=== PATIENT | male | born 1940 | race Caucasian/White ===

== ENCOUNTER 2016-06-29 14:37 | Inpatient (IN) | payer OTHER, MEDICARE ==
[~2016-06-29 14:37] MED LIST: DIAZ5 PO
[2016-06-29 14:42] VITALS: BP 130/79; PULSE 78; RESP 18; TEMP 98.8; O2SAT 91
[2016-06-29] MEDS ORDERED: [UNRECOGNIZED DRUG - OTHER] (14:52)
[2016-06-29] MEDS ORDERED: DIAZ5TAB PO (14:52)
[2016-06-29 15:15] VITALS: O2SAT 93
[2016-06-29] MEDS ORDERED: SODIUM CHLORIDE 0.9% FLUSH 5 ML FLUSH IVF PRN (15:15)
--- NOTE | 2016-06-29 15:15 | PD ---
HPI Chief Complaint: General Weakness Time Seen by Provider: 15:12 Travel History International Travel<30 days: No Contact w/Intl Traveler<30days: No Traveled to known affect area: No History of Present Illness HPI 76-year-old elderly male presents to the emergency department via EMS for evaluation generalized weakness, constipation for 10-15 days. He was seen yesterday after hospitalist Stephanie. Family states they did lab work and it x- ray of the abdomen and discharged him. He drink a bottle magnesium citrate this morning with no relief. The patient reports diffuse abdominal pain and distention. He denies any fevers. No chest pain or shortness of breath. He denies any vomiting. Patient is a C6 partial quad. He reports a history of appendectomy, but no other abdominal surgeries or chronic abdominal problems. Patient does report some left shoulder pain, but denies any trauma. 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 Patient has erythema and scaling to groin/bilateral hips. No warmth or drainage. HEAD: Normocephalic. Atraumatic. EYES: No scleral icterus. No injection or drainage. NECK: Supple, trachea midline. No JVD or lymphadenopathy. CARDIOVASCULAR: Regular rate and rhythm without murmurs, gallops, or rubs. RESPIRATORY: Breath sounds equal bilaterally. No accessory muscle use. Lungs sounds are clear to auscultation. GASTROINTESTINAL: Abdomen distended with diffuse tenderness to palpation. MUSCULOSKELETAL: No cyanosis, or edema. BACK: Nontender without obvious deformity. No CVA tenderness. RECTAL EXAM: No masses or tenderness. I'm unable to palpate any stool. No fecal impaction. Nurse is at the bedside for rectal exam. Data Data Last Documented VS Vital Signs Date Time Temp Pulse Resp B/P Pulse Ox O2 Delivery O2 Flow Rate FiO2 06/29/16 19:31 91 20 139/88 92 06/29/16 14:42 98.8 Orders Complete Blood Count With Diff (06/29/16 15:08) Comprehensive Metabolic Panel (06/29/16 15:08) Lipase (06/29/16 15:08) Urinalysis - C+S If Indicated (06/29/16 15:08) Ct Abd/Pel W Iv Contrast(Rout) (06/29/16 15:08) Iv Access Insert/Monitor (06/29/16 15:08) Ecg Monitoring (06/29/16 15:08) Oximetry (06/29/16 15:08) Sodium Chloride 0.9% Flush (Ns Flush) (06/29/16 15:15) Electrocardiogram (06/29/16 15:08) Chest, Single Ap (06/29/16 15:08) Cath For Specimen (06/29/16 15:15) Iohexol 350 Inj (Omnipaque 350 Inj) (06/29/16 16:48) Shoulder, Complete (>2vws) (06/29/16 ) Admit Order (Ed Use Only) (06/29/16 17:47) Thyroid Stimulating Hormone (06/29/16 19:43) Folate, Serum (06/29/16 19:43) Place In Observation (06/29/16 ) Vital Signs (Adult) Q4H (06/29/16 19:43) Activity Oob With Assistance (06/29/16 19:43) Diet Heart Healthy (06/30/16 Breakfast) Sodium Chlor 0.9% 1000 Ml Inj (Ns 1000 M (06/29/16 19:43) Sodium Chloride 0.9% Flush (Ns Flush) (06/29/16 19:45) Sodium Chloride 0.9% Flush (Ns Flush) (06/29/16 21:00) Enoxaparin Inj (Lovenox Inj) (06/30/16 09:00) Naloxone Inj (Narcan Inj) (06/29/16 19:45) Labs Laboratory Tests Test 06/29/16 06/29/16 15:30 15:34 Urine Color YELLOW Urine Turbidity HAZY Urine pH 5.5 Urine Specific [place] 1.015 Urine Protein TRACE mg/dL Urine Glucose (UA) NEG mg/dL Urine Ketones TRACE mg/dL Urine Occult Blood LARGE Urine Nitrite NEG Urine Bilirubin NEG Urine Urobilinogen 2.0 MG/DL Urine Leukocyte Esterase NEG Urine RBC 166 /hpf Urine WBC 4 /hpf Urine Hyaline Casts 1 /lpf Urine Mucus FEW /lpf Microscopic Urinalysis Comment CULT NOT INDICATED White Blood Count 6.4 TH/MM3 Red Blood Count 4.02 MIL/MM3 Hemoglobin 14.4 GM/DL Hematocrit 42.2 % Mean Corpuscular Volume 105.0 FL Mean Corpuscular Hemoglobin 35.9 PG Mean Corpuscular Hemoglobin 34.2 % Concent Red Cell Distribution Width 13.4 % Platelet Count 211 TH/MM3 Mean Platelet Volume 9.6 FL Neutrophils (%) (Auto) 80.0 % Lymphocytes (%) (Auto) 8.2 % Monocytes (%) (Auto) 10.0 % Eosinophils (%) (Auto) 1.2 % Basophils (%) (Auto) 0.6 % Neutrophils # (Auto) 5.1 TH/MM3 Lymphocytes # (Auto) 0.5 TH/MM3 Monocytes # (Auto) 0.6 TH/MM3 Eosinophils # (Auto) 0.1 TH/MM3 Basophils # (Auto) 0.0 TH/MM3 CBC Comment DIFF FINAL Differential Comment Sodium Level 139 MEQ/L Potassium Level 4.1 MEQ/L Chloride Level 102 MEQ/L Carbon Dioxide Level 34.3 MEQ/L Anion Gap 3 MEQ/L Blood Urea Nitrogen 10 MG/DL Creatinine 0.83 MG/DL Estimat Glomerular Filtration 90 ML/MIN Rate Random Glucose 97 MG/DL Calcium Level 9.2 MG/DL Total Bilirubin 0.8 MG/DL Aspartate Amino Transf 19 U/L (AST/SGOT) Alanine Aminotransferase 17 U/L (ALT/SGPT) Alkaline Phosphatase 85 U/L Total Protein 8.0 GM/DL Albumin 3.2 GM/DL Lipase 148 U/L [facility] Medical Decision Making Medical Screen Exam Complete: Yes Emergency Medical Condition: Yes Medical Record Reviewed: Yes Interpretation(s) Last Impressions Chest X-Ray 06/29/16 1508 Signed Impressions: Service Date/Time: Wednesday, June 29, 2016 15:19 - CONCLUSION: No acute pulmonary infiltrates. Enoc Tran MD CT abdomen/pelvis - CONCLUSION: Unremarkable CT scan of the abdomen and pelvis. Small hiatal hernia. No adenopathy, free fluid or mass. Differential Diagnosis Fecal impaction versus constipation versus bowel obstruction versus abdominal mass versus urinary tract infection Narrative Course 76-year-old male presents to the emergency department via EMS for evaluation of diffuse abdominal pain, constipation for 10-15 days. EKG is ordered and pending. Chest x-ray is ordered and pending. CBC, CMP, lipase, UA are ordered and pending. CT abdomen/pelvis is ordered and pending EKG shows sinus rhythm, rate [address] changes. CBC shows normal WBC of 6.4, neutrophilia 80.0. CMP shows no acute abnormalities. Lipase is 148. UA shows large occult blood, no acute infection. Chest x-ray shows no acute pulmonary infiltrates. CT abdomen/pelvis is unremarkable. I discussed 23 hour observation with the family and patient due to failure of outpatient attempts to relieve constipation. Dr. Ryan, my attending physician, has also examined patient and agrees with plan and disposition. Family is agreeable. [address] [place] [address] is paged. Family came out of room concerned that patient has left shoulder pain x 2 weeks , x-ray is ordered. Dr. Cunha accepted admission. Diagnosis Primary Impression: Constipation Qualified Code: K59.00 - Constipation, unspecified constipation type Additional Impression: Abdominal pain Qualified Code: R10.84 - Generalized abdominal pain Admitting Information Admitting Physician Requests: Shasta Esteban Jun 29, 2016 15:15
--- NOTE | 2016-06-29 15:29 | RADRPT ---
EXAM DATE/TIME: 06/29/2016 15:19 [facility] COMPARISON: No previous studies available for comparison. INDICATIONS : Cough and shortness of breath. MEDICAL HISTORY : None. SURGICAL HISTORY : None. ENCOUNTER: Initial ACUITY: 1 day PAIN SCORE: 0/10 LOCATION: Bilateral chest FINDINGS: A single view of the chest demonstrates the lungs to be symmetrically aerated without evidence of mas s, infiltrate or effusion. There is some pleural thickening in both apices. The cardiomediastinal co ntours are unremarkable. Osseous structures are intact. There are degenerative changes of the thorac ic spine with curvature to the right. No prior studies for comparison. CONCLUSION: No acute pulmonary infiltrates. Enoc Tarn MD on June 29, 2016 at 15:27 Board Certified Radiologist. This report was verified electronically.
[2016-06-29 15:55] LABS: AUTOMATED NEUTROPHIL # 5.1 TH/MM3 (1.8-7.7); BASOPHIL % 0.6 % (0.0-2.0); EOSINOPHIL # 0.1 TH/MM3 (0-0.4); EOSINOPHIL % 1.2 % (0.0-4.0); HEMATOCRIT 42.2 % (39.0-51.0); HEMO FLAGS DIFF FINAL; LYMPH % 8.2 % (9.0-44.0); LYMPHOCYTE # 0.5 TH/MM3 (1.0-4.8); MEAN CORPUSCULAR HEMOGLOBIN 35.9 PG (27.0-34.0); MEAN CORPUSCULAR HGB CONC 34.2 % (32.0-36.0); PLATELET COUNT 211 TH/MM3 (150-450); RED BLOOD COUNT 4.02 MIL/MM3 (4.50-5.90); RED CELL DISTRIBUTION WIDTH 13.4 % (11.6-17.2); WHITE BLOOD COUNT 6.4 TH/MM3 (4.0-11.0)
[2016-06-29 16:11] LABS: BLOOD, URINE LARGE (NEG); COMMENT (UR) CULT NOT INDICATED; CULTURE IF INDICATED CULT NOT INDICATED; GLUCOSE,URINE NEG (NEG); HYALINE CAST, URINE 1 /lpf (RARE); KETONE, URINE TRACE mg/dL (NEG); MUCUS URINE FEW /lpf (OCC); NITRITE,URINE NEG (NEG); PH, URINE 5.5 (5.0-8.5); URINE COLOR YELLOW (YELLW/STRAW)
[2016-06-29 16:21] LABS: ALT (GPT) 17 U/L (12-78); ANION GAP 3 MEQ/L (5-15); AST (GOT) 19 U/L (15-37); BICARBONATE 34.3 MEQ/L (21.0-32.0); BLOOD UREA NITROGEN 10 MG/DL (7-18); CHLORIDE 102 MEQ/L (98-107); GLOMERULAR FILTRATION RATE 90 ML/MIN (>89); POTASSIUM 4.1 MEQ/L (3.5-5.1); SODIUM (NA) 139 MEQ/L (136-145)
[2016-06-29 16:23] LABS: ALKALINE PHOSPHATASE 85 U/L (45-117); TOTAL BILIRUBIN ADULT 0.8 MG/DL (0.2-1.0)
[2016-06-29] MEDS ORDERED: IOHEXOL 350 MG/ML 10 ML VIAL (for RAD DIAG) IV ONE (16:48)
--- NOTE | 2016-06-29 17:09 | PD ---
Data Data Last Documented VS Vital Signs Date Time Temp Pulse Resp B/P Pulse Ox O2 Delivery O2 Flow Rate FiO2 06/29/16 15:15 93 06/29/16 14:42 98.8 78 18 130/79 Orders Complete Blood Count With Diff (06/29/16 15:08) Comprehensive Metabolic Panel (06/29/16 15:08) Lipase (06/29/16 15:08) Urinalysis - C+S If Indicated (06/29/16 15:08) Ct Abd/Pel W Iv Contrast(Rout) (06/29/16 15:08) Iv Access Insert/Monitor (06/29/16 15:08) Ecg Monitoring (06/29/16 15:08) Oximetry (06/29/16 15:08) Sodium Chloride 0.9% Flush (Ns Flush) (06/29/16 15:15) Electrocardiogram (06/29/16 15:08) Chest, Single Ap (06/29/16 15:08) Cath For Specimen (06/29/16 15:15) Iohexol 350 Inj (Omnipaque 350 Inj) (06/29/16 16:48) Labs Laboratory Tests Test 06/29/16 06/29/16 15:30 15:34 Urine Color YELLOW Urine Turbidity HAZY Urine pH 5.5 Urine Specific [place] 1.015 Urine Protein TRACE mg/dL Urine Glucose (UA) NEG mg/dL Urine Ketones TRACE mg/dL Urine Occult Blood LARGE Urine Nitrite NEG Urine Bilirubin NEG Urine Urobilinogen 2.0 MG/DL Urine Leukocyte Esterase NEG Urine RBC 166 /hpf Urine WBC 4 /hpf Urine Hyaline Casts 1 /lpf Urine Mucus FEW /lpf Microscopic Urinalysis Comment CULT NOT INDICATED White Blood Count 6.4 TH/MM3 Red Blood Count 4.02 MIL/MM3 Hemoglobin 14.4 GM/DL Hematocrit 42.2 % Mean Corpuscular Volume 105.0 FL Mean Corpuscular Hemoglobin 35.9 PG Mean Corpuscular Hemoglobin 34.2 % Concent Red Cell Distribution Width 13.4 % Platelet Count 211 TH/MM3 Mean Platelet Volume 9.6 FL Neutrophils (%) (Auto) 80.0 % Lymphocytes (%) (Auto) 8.2 % Monocytes (%) (Auto) 10.0 % Eosinophils (%) (Auto) 1.2 % Basophils (%) (Auto) 0.6 % Neutrophils # (Auto) 5.1 TH/MM3 Lymphocytes # (Auto) 0.5 TH/MM3 Monocytes # (Auto) 0.6 TH/MM3 Eosinophils # (Auto) 0.1 TH/MM3 Basophils # (Auto) 0.0 TH/MM3 CBC Comment DIFF FINAL Differential Comment Sodium Level 139 MEQ/L Potassium Level 4.1 MEQ/L Chloride Level 102 MEQ/L Carbon Dioxide Level 34.3 MEQ/L Anion Gap 3 MEQ/L Blood Urea Nitrogen 10 MG/DL Creatinine 0.83 MG/DL Estimat Glomerular Filtration 90 ML/MIN Rate Random Glucose 97 MG/DL Calcium Level 9.2 MG/DL Total Bilirubin 0.8 MG/DL Aspartate Amino Transf 19 U/L (AST/SGOT) Alanine Aminotransferase 17 U/L (ALT/SGPT) Alkaline Phosphatase 85 U/L Total Protein 8.0 GM/DL Albumin 3.2 GM/DL Lipase 148 U/L MDM Supervised Visit with JASMIN: Yes Narrative Course The history, exam, and medical decision-making in the associated mid-level provider note were completed with my assistance. I reviewed and agree with the findings presented. I attest that I had a [id number] encounter with the patient on the same day, and personally performed and documented my assessment and findings in the medical record. *My assessment and Findings: 76-year-old man with partial quadriplegia who presents with worsening constipation and concern for obstipation or bowel obstruction. He said no bowel movement for 15 days. Worsening abdominal distention. He can feel some and has some discomfort. They've been trying multiple different remedies and were in the ER yesterday where they had an x-ray and lab work done. On rectal exam there is no stool in the rectal vault. Patient will get CT scan, labs, likely need to be admitted. Fortino Ryan MD Jun 29, 2016 17:09
--- NOTE | 2016-06-29 17:10 | RADRPT ---
EXAM DATE/TIME: 06/29/2016 16:49 [facility] COMPARISON: No previous studies available for comparison. INDICATIONS: Abdominal pain. IV CONTRAST: 90 cc Omnipaque 350 (iohexol) IV ORAL CONTRAST: No oral contrast ingested. RADIATION DOSE: 8.66 CTDIvol (mGy) MEDICAL HISTORY: None SURGICAL HISTORY: Appendectomy. ENCOUNTER: Initial ACUITY: 1 week PAIN SCALE: 4/10 LOCATION: Abdomen/pelvis TECHNIQUE: Volumetric scanning of the abdomen and pelvis was performed. Using automated exposure control and ad justment of the mA and/or kV according to patient size, radiation dose was kept as low as reasonably achievable to obtain optimal diagnostic quality images. FINDINGS: CT scan of the abdomen and pelvis performed with IV and oral contrast. There is a small hiatal herni a present. There is a small cyst left lobe of liver. Gallbladder is decompressed without evidence o f wall thickening. The rest of the liver, kidneys, adrenal glands, and pancreas are unremarkable. S pleen is unremarkable. No bowel wall thickening is identified. No adenopathy is identified. Blackwell catheter is in place. Mild atelectasis both lung bases right greater than left. Bone windows are ne gative. Coronal reformats are unremarkable. CONCLUSION: Unremarkable CT scan of the abdomen and pelvis. Small hiatal hernia. No adenopathy, free fluid or m ass. Fortino Grijalva MD on June 29, 2016 at 17:01 Board Certified Radiologist. This report was verified electronically.
[2016-06-29 17:39] VITALS: BP 139/88; PULSE 85; RESP 16; O2SAT 93
--- NOTE | 2016-06-29 18:48 | RADRPT ---
EXAM DATE/TIME: 06/29/2016 17:47 [facility] COMPARISON: CHEST SINGLE AP, June 29, 2016, 15:19. CT ABDOMEN & PELVIS W CONTRAST, June 29, 2016, 16:49. INDICATIONS: Left shoulder pain for over one month. No known trauma. MEDICAL HISTORY: None. SURGICAL HISTORY: None. ENCOUNTER: Initial ACUITY: 2 months PAIN SCORE: 5/10 LOCATION: Left shoulder. FINDINGS: The glenohumeral and acromioclavicular joints appear aligned. There does appear to be hypertrophic c hange seen inferior to the glenoid. No foreign bodies are seen. No fracture is seen. CONCLUSION: Suspected hypertrophic change at the inferior aspect of the glenoid. Leon Hanks MD on June 29, 2016 at 18:28 Board Certified Radiologist. This report was verified electronically.
[2016-06-29 19:31] VITALS: BP 139/88; PULSE 91; RESP 20; O2SAT 92
[2016-06-29] MEDS: SODIUM CHLOR 0.9% 1000 ML INJ 1,000 ML IV SCH (19:43)
[2016-06-29] MEDS ORDERED: SODIUM CHLORIDE 0.9% FLUSH 5 ML FLUSH FLUSH PRN (19:45)
[2016-06-29] MEDS ORDERED: NALOXONE HCL 0.4 MG/ML AMP IV PRN (19:45)
[2016-06-29] MEDS ORDERED: MAGNESIUM HYDROXIDE SUSP 30 ML CUP PO ONE (20:30)
[2016-06-29] MEDS ORDERED: MINERAL OIL ENEMA 118 ML BTL RECTAL PRN (20:30)
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
[2016-06-29] MEDS: SODIUM CHLORIDE 0.9% FLUSH 5 ML FLUSH FLUSH SCH (22:52)
[2016-06-30 00:12] VITALS: BP 118/70; PULSE 93; RESP 16; TEMP 97.7; O2SAT 93
[2016-06-30 03:48] VITALS: BP 108/62; PULSE 88; RESP 16; TEMP 98.9; O2SAT 93
[2016-06-30] MEDS: SODIUM CHLOR 0.9% 1000 ML INJ 1,000 ML IV SCH ×2 (05:43→19:00)
[2016-06-30 07:41] VITALS: BP 133/85; PULSE 87; RESP 18; O2SAT 95
[2016-06-30] MEDS ORDERED: ENOXAPARIN SODIUM 40 MG/0.4 ML SYRINGE SQ SCH (09:00)
[2016-06-30] MEDS: SODIUM CHLORIDE 0.9% FLUSH 5 ML FLUSH FLUSH SCH ×2 (09:00→21:00)
--- NOTE | 2016-06-30 09:27 | HHI.PR ---
Subjective Remarks Follow-up for constipation. The patient continues to report not passing any BM or flatus overnight. He does report abdominal discomfort. He reports decreased appetite for the past few days. He denies any fevers, chills, nausea , or vomiting. He has not received enema yet, discussed with RN. Objective Vitals Vital Signs Date Time Temp Pulse Resp B/P Pulse Ox O2 Delivery O2 Flow Rate FiO2 06/30/16 07:41 87 18 133/85 95 06/30/16 03:48 98.9 88 16 108/62 93 06/30/16 00:12 97.7 93 16 118/70 93 06/29/16 19:31 91 20 139/88 92 06/29/16 17:39 85 16 139/88 93 06/29/16 15:15 93 06/29/16 14:42 98.8 78 18 130/79 91 Result Diagram: 06/29/16 1534 06/29/16 1534 Imaging Last Impressions Chest X-Ray 06/29/16 1508 Signed Impressions: Service Date/Time: Wednesday, June 29, 2016 15:19 - CONCLUSION: No acute pulmonary infiltrates. Enoc Tran MD Abdomen/Pelvis CT 06/29/16 1508 Signed Impressions: Service Date/Time: Wednesday, June 29, 2016 16:49 - CONCLUSION: Unremarkable CT scan of the abdomen and pelvis. Small hiatal hernia. No adenopathy, free fluid or mass. Fortino Grijalva MD Shoulder X-Ray 06/29/16 0000 Signed Impressions: Service Date/Time: Wednesday, June 29, 2016 17:47 - CONCLUSION: Suspected hypertrophic change at the inferior aspect of the glenoid. Leon Hanks MD Objective Remarks GENERAL: Well-developed well-nourished. In no acute distress. SKIN: Warm and dry. No lesions noted. HEENT: Normocephalic. Pupils equal and round. Mucous membranes pink and moist. CARDIOVASCULAR: Regular rate and rhythm. No murmur appreciated. RESPIRATORY: No accessory muscle use. Clear to auscultation. Breath sounds equal bilaterally. GASTROINTESTINAL: Abdomen soft, non-tender, nondistended. Decreased bowel sounds in the upper quadrants, normal in the lower. MUSCULOSKELETAL: No obvious deformities. No clubbing or cyanosis. No edema. NEUROLOGICAL: Awake and alert. Partial quadriplegia. Moves upper and lower extremities spontaneously. Normal speech. PSYCHIATRIC: Appropriate mood and affect; insight and judgment fair to normal. A/P Problem List: (1) Constipation ICD Code: K59.00 Status: Acute (2) Quadriplegia, functional ICD Code: R53.2 Status: Chronic Assessment and Plan 76 y/o male with a history of partial quadriplegia presented with: Constipation for 15 days, with no relief for mag citrate Images: CT pelvis/Abd is unremarkable -Mineral oil enema -IVF -Consulted GI for recommendations- as pt is also reporting of cycles of constipation/ diarrhea (without use of laxatives) prior to this 2 weeks. Never had colonoscopy Quadriplegia, functional -PT eval and treat Macrocytosis Checked B12 and folate, within normal limits DVT prophylaxis: lovenox Written by Thiago Felder, acting as scribe for Dr. Carbone on 06/30/16 at 09:26. The documentation accurately reflects the work performed [id number] by me Dr. Carbone on 06/30/16 at 09:26. Discharge Planning Discharge pending clinical improvement. Problem Qualifiers (1) Constipation: Qualified Code: K59.00 - Constipation, unspecified constipation type Thiago Felder Jun 30, 2016 09:27 Luisa Carbone MD Jun 30, 2016 13:25
--- NOTE | 2016-06-30 12:17 | PD.CONS ---
HPI History of Present Illness This is a 76 year old with a hx partial quadriplegia who came to the ER for constipation. He had a change in bowels for the past 6 months with alternating constipation and diarrhea. He reports that he will 3-5 days without a bowel movement and then he will pass a large hard stool and after this have several loose bowel movements. He will occasionally take Kaopectate to stop the diarrhea. He will then go another 3-5 days without a bowel movement. When he has the diarrhea, he has such urgency that he has a hard time making it to the bathroom and sometimes will have episodes in bed. He reports that his was getting "fed up" of it and therefore he took "an extra swig of Kaopectate." He states this was 15 days ago and he has not had a bowel movement since. On Tuesday, he went to [facility] and was given magnesium citrate but did not have any results. He denies any nausea, vomiting. He does have some epigastric pain that he describes as pressure. He denies any heartburn. He denies any blood in his stool. He has never had any EGD/Colonoscopy. 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 (Adelia Willams) Coded Allergies: Latex (Verified Allergy, Severe, Rash, 06/29/16) Medications Allergies Coded Allergies Type Severity Reaction Last Updated Verified Latex Allergy Severe Rash 06/29/16 Yes Active Scripts Medications Dose Route/Sig Days Date Category [Cream For Face] 06/29/16 Reported Diazepam 5 Mg Tab 5 Mg PO BID PRN 06/29/16 Reported Family History Father had mesothelioma Social History Tobacco use: quit many years ago Alcohol use: socially Illicit drug use: marijuana (Adelia Willams) Review of Systems Constitutional: COMPLAINS OF: Fatigue, DENIES: Weight loss (he does not know, poor historian), Change in appetite Respiratory: DENIES: Cough, Shortness of breath Cardiovascular: DENIES: Chest pain Gastrointestinal: COMPLAINS OF: Abdominal pain, Constipation, DENIES: Black stools, Bloody stools, Diarrhea, Nausea, Vomiting, Anorexia, Heartburn Musculoskeletal: COMPLAINS OF: Neck pain, DENIES: Joint pain, Back pain Neurologic: COMPLAINS OF: Localized weakness, DENIES: Headache Psychiatric: DENIES: Confusion (Adelia Willams PHILOSOPHY LECTURER) GI Exam Vitals I&O Vital Signs Date Time Temp Pulse Resp B/P Pulse Ox O2 Delivery O2 Flow Rate FiO2 06/30/16 07:41 87 18 133/85 95 06/30/16 03:48 98.9 88 16 108/62 93 06/30/16 00:12 97.7 93 16 118/70 93 06/29/16 19:31 91 20 139/88 92 06/29/16 17:39 85 16 139/88 93 06/29/16 15:15 93 06/29/16 14:42 98.8 78 18 130/79 91 Imaging Last Impressions Chest X-Ray 06/29/16 1508 Signed Impressions: Service Date/Time: Wednesday, June 29, 2016 15:19 - CONCLUSION: No acute pulmonary infiltrates. Enoc Tran MD Abdomen/Pelvis CT 06/29/16 1508 Signed Impressions: Service Date/Time: Wednesday, June 29, 2016 16:49 - CONCLUSION: Unremarkable CT scan of the abdomen and pelvis. Small hiatal hernia. No adenopathy, free fluid or mass. Fortino Grijalva MD Shoulder X-Ray 06/29/16 0000 Signed Impressions: Service Date/Time: Wednesday, June 29, 2016 17:47 - CONCLUSION: Suspected hypertrophic change at the inferior aspect of the glenoid. Leon Hanks MD Laboratory Test 06/29/16 06/29/16 15:30 15:34 Urine Color YELLOW Urine Turbidity HAZY Urine pH 5.5 Urine Specific [place] 1.015 Urine Protein TRACE mg/dL Urine Glucose (UA) NEG mg/dL Urine Ketones TRACE mg/dL Urine Occult Blood LARGE Urine Nitrite NEG Urine Bilirubin NEG Urine Urobilinogen 2.0 MG/DL Urine Leukocyte Esterase NEG Urine RBC 166 /hpf Urine WBC 4 /hpf Urine Hyaline Casts 1 /lpf Urine Mucus FEW /lpf Microscopic Urinalysis Comment CULT NOT INDICATED White Blood Count 6.4 TH/MM3 Red Blood Count 4.02 MIL/MM3 Hemoglobin 14.4 GM/DL Hematocrit 42.2 % Mean Corpuscular Volume 105.0 FL Mean Corpuscular Hemoglobin 35.9 PG Mean Corpuscular Hemoglobin 34.2 % Concent Red Cell Distribution Width 13.4 % Platelet Count 211 TH/MM3 Mean Platelet Volume 9.6 FL Neutrophils (%) (Auto) 80.0 % Lymphocytes (%) (Auto) 8.2 % Monocytes (%) (Auto) 10.0 % Eosinophils (%) (Auto) 1.2 % Basophils (%) (Auto) 0.6 % Neutrophils # (Auto) 5.1 TH/MM3 Lymphocytes # (Auto) 0.5 TH/MM3 Monocytes # (Auto) 0.6 TH/MM3 Eosinophils # (Auto) 0.1 TH/MM3 Basophils # (Auto) 0.0 TH/MM3 CBC Comment DIFF FINAL Differential Comment Sodium Level 139 MEQ/L Potassium Level 4.1 MEQ/L Chloride Level 102 MEQ/L Carbon Dioxide Level 34.3 MEQ/L Anion Gap 3 MEQ/L Blood Urea Nitrogen 10 MG/DL Creatinine 0.83 MG/DL Estimat Glomerular Filtration 90 ML/MIN Rate Random Glucose 97 MG/DL Calcium Level 9.2 MG/DL Total Bilirubin 0.8 MG/DL Aspartate Amino Transf 19 U/L (AST/SGOT) Alanine Aminotransferase 17 U/L (ALT/SGPT) Alkaline Phosphatase 85 U/L Total Protein 8.0 GM/DL Albumin 3.2 GM/DL Lipase 148 U/L Vitamin B12 Level 276 PG/ML Folate GREATER THAN 20.0 NG/ML Thyroid Stimulating Hormone 0.825 uIU/ML 3rd Gen Physical Examination HEENT:Atraumatic; no jaundice. Throat is clear. Eczema CHEST: CTA CARDIAC: RRR ABDOMEN: Semi firm, nondistended, mild diffuse tenderness; no hepatosplenomegaly; bowel sounds are present in all four quadrants. EXTREMITIES: No clubbing, cyanosis, or edema. SKIN: Diffuse rash trunk, face, extremities- eczema INVESTMENT FUND MANAGER: Generalized weakness. A/O x 3 poor historian (Adelia Willams) Assessment and Plan Plan ASSESSMENT: - Change in bowels, alternating constipation/diarrhea with reportedly no BM x 15 days. Started 6 months ago, going 3-5 days without a bowel movement, having a large hard bowel movement followed by diarrhea with incontinence and urgency, wakes up soiled. States his was getting "fed up" and therefore he started taking Kaopectate and "took an extra swig" of this 15 days ago. He reports that he has not had a bowel movement since that time. He is a poor historian. He was seen at [facility] and told to take Magnesium Citrate, which he said he did but he did not have any results. He cannot tell me if he has lost any weight, although he appears dishevled and malnourished He has never had an EGD/Colonoscopy. Abdomen/Pelvis CT (06/29/16)----> Unremarkable CT scan of the abdomen and pelvis. Small hiatal hernia. No adenopathy, free fluid or mass. He was given MOM and mineral oil without results. - Epigastric pain/pressure. PPI - Hematuria. Pt was incontinent and his urine on the bath blanket has a pinkish color to it. U/A with trace ketones, large occult blood. Per primary - Macrocytosis. Vitamin B12 276, Folate >20.0. - Partial quadriplegia per primary PLAN: - Plan for egd/colonoscopy in am - Obtain consents - Clear liquids - NPO after MN - Golytely prep - PPI - Hold lovenox after MN - Supportive care - Further recommendations to follow based on results of above - Pt seen and examined by Dr. Combs and myself and this note is written on his behalf (Adelia Willams) Physician Comments Patient seen and examined Agree with above Continue current supportive care Monitor labs Plan for EGD colonoscopy tomorrow (Branden Combs MD) Adelia Willams Jun 30, 2016 12:17 Branden Combs MD Jun 30, 2016 19:53
[2016-06-30 12:29] VITALS: BP 131/74; PULSE 78; RESP 18; TEMP 98.8; O2SAT 98
--- NOTE | 2016-06-30 15:46 | EKG ---
Date Performed: 06/29/2016 Time Performed: 14:53:03 PTAGE: 76 years EKG: Sinus rhythm NORMAL ECG INTERPRETATION BASED ON A DEFAULT AGE OF 40 YEARS NO PREVIOUS TRACING DOCTOR: Kartik Chen Interpretating Date/Time 06/30/2016 15:41:42
[2016-06-30 16:00] VITALS: BP 165/93; PULSE 88; RESP 20; TEMP 97.2; O2SAT 96
[2016-06-30] MEDS ORDERED: PEG (High)/E-LYTE SOLN 4000 ML BTL PO ONE (16:00)
[2016-06-30] MEDS: PANTOPRAZOLE SOD 40 MG DELAYED RELEASE TAB PO SCH (16:56)
[2016-06-30 19:42] VITALS: BP 151/89; PULSE 89; RESP 20; TEMP 97.2; O2SAT 93
[2016-07-01] VITALS (7 sets, daily range): BP systolic 118–143; BP diastolic 68–97; PULSE 77–109; RESP 16–20; TEMP 97.1–100.5; O2SAT 93–97
[2016-07-01 01:39] LABS: APTT (PATIENT) 28.7 SEC (24.3-30.1); INTERNATIONAL NORMALIZED RATIO 1.1 RATIO; PROTHROMBIN TIME - PATIENT 12.4 SEC (9.8-11.6)
[2016-07-01] MEDS: SODIUM CHLOR 0.9% 1000 ML INJ 1,000 ML IV SCH ×3 (01:43→22:50)
[2016-07-01] MEDS ORDERED: INFLUENZA VIRUS VACCINE (QUADRIVALENT) 0.5 ML SYR IM ONE (09:00)
[2016-07-01] MEDS: SODIUM CHLORIDE 0.9% FLUSH 5 ML FLUSH FLUSH SCH ×2 (09:00→21:00)
[2016-07-01 11:27] LABS: AUTOMATED NEUTROPHIL # 12.4 TH/MM3 (1.8-7.7); BASOPHIL % 0.3 % (0.0-2.0); HEMATOCRIT 42.2 % (39.0-51.0); HEMO FLAGS DIFF FINAL; LYMPH % 4.5 % (9.0-44.0); LYMPHOCYTE # 0.6 TH/MM3 (1.0-4.8); MEAN CELL VOLUME 105.2 FL (80.0-100.0); MEAN CORPUSCULAR HEMOGLOBIN 35.3 PG (27.0-34.0); MEAN CORPUSCULAR HGB CONC 33.5 % (32.0-36.0); MONO % 8.6 % (0.0-8.0); NEUT % 86.6 % (16.0-70.0); PLATELET COUNT 230 TH/MM3 (150-450); RED BLOOD COUNT 4.01 MIL/MM3 (4.50-5.90); RED CELL DISTRIBUTION WIDTH 13.1 % (11.6-17.2); WHITE BLOOD COUNT 14.3 TH/MM3 (4.0-11.0)
[2016-07-01 11:54] LABS: BICARBONATE 30.3 MEQ/L (21.0-32.0); POTASSIUM 4.3 MEQ/L (3.5-5.1)
--- NOTE | 2016-07-01 12:04 | HHI.PR ---
Subjective Remarks Follow up for constipation. The RN reports some hematuria with bloody output in the diaper. Also inguinal folds erythematous, worse at left groin/upper thigh. Tmax 100.5 today. The patient reports diffuse pains. Denies any shortness of breath. Objective Vitals Vital Signs Date Time Temp Pulse Resp B/P Pulse Ox O2 Delivery O2 Flow Rate FiO2 07/01/16 11:50 100.1 89 18 118/75 95 07/01/16 08:00 100.5 95 20 140/96 95 07/01/16 05:59 97.1 103 20 125/80 93 07/01/16 00:04 97.4 109 20 143/97 93 06/30/16 19:42 97.2 89 20 151/89 93 06/30/16 16:00 97.2 88 20 165/93 96 06/30/16 12:29 98.8 78 18 131/74 98 I/O 06/30/16 06/30/16 06/30/16 07/01/16 07/01/16 07/01/16 07:00 15:00 23:00 07:00 15:00 23:00 Intake Total 1700 ml Output Total 1 ml Balance 1699 ml Intake Oral 800 ml IV Total 900 ml Output Stool Total 1 ml # Voids 6 # Bowel Movements 2 Result Diagram: 07/01/16 1051 07/01/16 1051 Imaging Last Impressions Chest X-Ray 06/29/16 1508 Signed Impressions: Service Date/Time: Wednesday, June 29, 2016 15:19 - CONCLUSION: No acute pulmonary infiltrates. Enoc Tran MD Abdomen/Pelvis CT 06/29/16 1508 Signed Impressions: Service Date/Time: Wednesday, June 29, 2016 16:49 - CONCLUSION: Unremarkable CT scan of the abdomen and pelvis. Small hiatal hernia. No adenopathy, free fluid or mass. Fortino Grijalva MD Shoulder X-Ray 06/29/16 0000 Signed Impressions: Service Date/Time: Wednesday, June 29, 2016 17:47 - CONCLUSION: Suspected hypertrophic change at the inferior aspect of the glenoid. Leon Hanks MD Objective Remarks GENERAL: Thin elderly male patient in NAD. SKIN: Warm and dry. No rash. HEAD: Normocephalic. Atraumatic. EYES: Pupils equal and round. No scleral icterus. No injection or drainage. ENT: No nasal bleeding or discharge. Mucous membranes pink and moist. NECK: Supple. Trachea midline. CARDIOVASCULAR: Regular rate and rhythm. S1, S2 noted. No murmur appreciated. RESPIRATORY: No accessory muscle use. Clear to auscultation. Breath sounds equal bilaterally. GASTROINTESTINAL: Abdomen soft, non-tender, nondistended. Normoactive bowel sounds x4. GENITOURINARY: adult brief with pink hematuria. Bilateral inguinal folds with diffuse erythema, worse on the left, with diffuse erythema/warmth/TTP throughout left upper thigh. MUSCULOSKELETAL: No obvious deformities. Extremities without clubbing, cyanosis , or edema. NEUROLOGICAL: Awake and alert. No obvious cranial nerve deficits. Motor grossly within normal limits. Normal speech. PSYCHIATRIC: Appropriate mood and affect; insight and judgment normal. Medications and IVs Current Medications Medications (Trade) Dose Ordered Sig/Aundrea Route Start Time Stop Time Status Last Admin (NS 1000 ml Inj) 1,000 ml @ 100 mls/hr Q10H IV 06/29/16 19:43 06/30/16 19:00 (NS Flush) 2 ml UNSCH PRN FLUSH 06/29/16 19:45 (NS Flush) 2 ml BID FLUSH 06/29/16 21:00 07/01/16 09:00 (Narcan Inj) 0.4 mg UNSCH PRN IV 06/29/16 19:45 (Fleet Mineral Oil Enema) 118 ml DAILY PRN RECTAL 06/29/16 20:30 06/30/16 11:05 Pantoprazole Sodium 40 mg 40 mg DAILY PO 06/30/16 12:30 07/01/16 15:41 Pharmacy Profile Note 0 ml @ 0 mls/hr UNSCH OTHER 07/01/16 12:15 Levofloxacin/ Dextrose 150 ml @ 100 mls/hr Q24H IV 07/01/16 13:00 07/01/16 15:46 (Vancomycin Inj/ NS 250 ml Inj) 262.5 ml @ 250 mls/hr Q12H IV 07/01/16 14:00 Miscellaneous Information SPECIFIC LAB TO BE DRAWN:VANCOMYCIN TROUGH DATE TO... ONCE ONCE XX 07/03/16 01:45 07/03/16 01:46 Urinary Catheter: No Vascular Central Line Catheter: No A/P Problem List: (1) Constipation ICD Code: K59.00 Status: Acute (2) Quadriplegia, functional ICD Code: R53.2 Status: Chronic Assessment and Plan 76 y/o male with a history of partial quadriplegia presented with: Constipation for 15 days: not relieved with mag citrate. CT abd/pelvis images reviewed by me, unremarkable. S/p Mineral oil enema. Continue IVF. Consulted GI for recommendations- as pt is also reporting of cycles of constipation/ diarrhea (without use of laxatives) prior to this. Never had colonoscopy. Plan for colonoscopy. Sepsis: Tmax 100.5, WBC 14.3K, hypotensive BP 90/63, source-cellulitis left upper thigh/groin. Blood cultures collected. Repeat UA ordered. Stat CBC, BMP, mag/phos ordered. Started on IV Vanco and Levaquin. Left Inguinal/Upper Thigh Cellulitis: on IV Vanco/Levaquin as above. Monitor for fevers. Monitor CBC. Quadriplegia, functional: PT eval and treat Macrocytosis: Checked B12 and folate, within normal limits. DVT prophylaxis: lovejudithx I spent 35 minutes [id number] with the patient or on the hawley discussing the patient's disposition, prognosis, and plan of care with his caregivers. Over half the time spent was devoted to counseling the patient regarding placement in coordinating care with caregivers and case management. Written by Lidia Wilson, acting as scribe for Dr. Perkins on 07/01/16 at 12: 04. Attending Statement The documentation accurately reflects the work performed [id number] by me on 07/01/16 at 12:04. Problem Qualifiers (1) Constipation: Qualified Code: K59.00 - Constipation, unspecified constipation type Lidia Wilson PA-C Jul 01, 2016 12:04 Bird Mckenzie MD Jul 03, 2016 19:22
[2016-07-01] MEDS ORDERED: Vancomycin Consult Pharmacy 1 EA OTHER SCH (12:15)
--- NOTE | 2016-07-01 14:13 | PD.PROCEDR ---
GI Procedure REFERRING PHYSICIAN Dr. Cunha PROCEDURE PERFORMED EGD with biopsy followed by an incomplete colonoscopy to transverse colon due to poor prep INDICATION FOR PROCEDURE Change in bowel habits epigastric pain PROCEDURE: The procedure, risks and benefits were discussed with Mr. Wiggins and informed consent was obtained. Anesthesia sedated him with Diprivan. He was placed in the left lateral decubitus position. EGD: The Pentax videoscope was introduced through the oropharynx and advanced to the second portion of the duodenum under direct visualization. Retroflexion was performed in the stomach. FINDINGS: The esophagus this appeared to be unremarkable overall but he did have an irregular Z line and this was biopsied The stomach there was punctate patchy erythema in the antrum but no ulcerations or erosions antral biopsies were taken for further evaluation The duodenum was normal Colonoscopy: The Pentax videoscope was introduced through the rectum and advanced to mid transverse colon. Retroflexion was performed in the rectum. Colonic prep was poor FINDINGS: The scope was advanced to the mid transverse colon there was solid fecal material throughout the colon and so the procedure was terminated I did flush out as much as I can there was nothing to disimpact or removed manually ESTIMATED BLOOD LOSS: None SPECIMENS REMOVED: Esophageal and gastric biopsies COMPLICATIONS: None IMPRESSION: Irregular Z line Gastritis Incomplete colonoscopy to transverse colon due to poor prep PLAN: Await biopsy Reflux precautions. PPI Repeat colonoscopy tomorrow Branden Combs MD Jul 01, 2016 14:13
[2016-07-01] MEDS ORDERED: PROPOFOL 200 MG/20 ML AMP IV ONE (14:45)
[2016-07-01] MEDS: PANTOPRAZOLE SOD 40 MG DELAYED RELEASE TAB PO SCH (15:41)
[2016-07-01] MEDS: LEVOFLOXACIN 750 MG PREMIX INJ 150 ML IV SCH (15:46)
[2016-07-01] MEDS ORDERED: PEG (High)/E-LYTE SOLN 4000 ML BTL PO ONE (16:00)
[2016-07-01] MEDS: VANCOMYCIN INJ 1,250 MG in SODIUM CHLOR 0.9% 250 ML INJ 250 ML IV SCH (18:51)
[2016-07-01 21:24] LABS: BACTERIA, URINE OCC /hpf; BLOOD, URINE LARGE (NEG); COMMENT (UR) CULTURE INDICATED; CULTURE IF INDICATED CULTURE INDICATED; GLUCOSE,URINE NEG (NEG); KETONE, URINE NEG (NEG); MUCUS URINE FEW /lpf (OCC); PH, URINE 8.5 (5.0-8.5); TRIPLE PHOSPHATE CRYSTAL,URINE MANY /hpf
[2016-07-01 21:25] LABS: NITRITE,URINE POS (NEG); URINE COLOR RED (YELLW/STRAW)
[2016-07-02] MEDS: VANCOMYCIN INJ 1,250 MG in SODIUM CHLOR 0.9% 250 ML INJ 250 ML IV SCH ×2 (02:15→17:04)
[2016-07-02 03:57] VITALS: BP 137/80; PULSE 91; RESP 18; TEMP 97.9; O2SAT 97
[2016-07-02] MEDS: SODIUM CHLOR 0.9% 1000 ML INJ 1,000 ML IV SCH ×2 (07:43→17:04)
[2016-07-02 07:55] VITALS: BP 163/90; PULSE 87; RESP 18; TEMP 98.9; O2SAT 93
[2016-07-02] MEDS: SODIUM CHLORIDE 0.9% FLUSH 5 ML FLUSH FLUSH SCH ×2 (09:00→22:27)
[2016-07-02] MEDS: PANTOPRAZOLE SOD 40 MG DELAYED RELEASE TAB PO SCH (09:00)
[2016-07-02 11:45] VITALS: BP 156/88; PULSE 87; RESP 16; TEMP 98.2; O2SAT 90
--- NOTE | 2016-07-02 12:18 | HHI.PR ---
Subjective Remarks Follow up for sepsis, cellulitis, UTI, constipation. Patient seen with his daughter and at bedside. The patient is upset this morning and wants to leave AMA. He refused colonoscopy and is refusing lab work. When asked why he wants to leave AMA, he states "I'm just stuck here" and he feels nothing is being done and he's not getting better. No further fevers overnight. [facility] After long discussion with the patient and family, he is willing to stay in the hospital. He still does not want repeat colonoscopy but is agreeable to lab work, continued treatment. The daughter says the patient is just getting worn out and weaker due to his illnesses, agrees to palliative care consult. Objective Vitals Vital Signs Date Time Temp Pulse Resp B/P Pulse Ox O2 Delivery O2 Flow Rate FiO2 07/02/16 11:45 98.2 87 16 156/88 90 07/02/16 07:55 98.9 87 18 163/90 93 07/02/16 03:57 97.9 91 18 137/80 97 07/01/16 20:55 98.8 77 18 125/68 96 07/01/16 16:00 98.7 86 18 120/81 94 07/01/16 14:12 82 18 90/63 94 07/01/16 14:08 84 18 103/65 94 07/01/16 13:58 98.1 84 18 106/69 95 07/01/16 13:15 98.0 91 16 130/76 97 I/O 07/01/16 07/01/16 07/01/16 07/02/16 07/02/16 07/02/16 07:00 15:00 23:00 07:00 15:00 23:00 Intake Total 1700 ml Balance 1700 ml Intake Oral 800 ml IV Total 400 ml Other 500 ml # Voids 5 # Bowel Movements 2 2 Result Diagram: 07/01/16 1051 07/01/16 1051 Imaging Last Impressions Chest X-Ray 06/29/16 1508 Signed Impressions: Service Date/Time: Wednesday, June 29, 2016 15:19 - CONCLUSION: No acute pulmonary infiltrates. Enoc Tran MD Abdomen/Pelvis CT 06/29/16 1508 Signed Impressions: Service Date/Time: Wednesday, June 29, 2016 16:49 - CONCLUSION: Unremarkable CT scan of the abdomen and pelvis. Small hiatal hernia. No adenopathy, free fluid or mass. Fortino Grijalva MD Shoulder X-Ray 06/29/16 0000 Signed Impressions: Service Date/Time: Wednesday, June 29, 2016 17:47 - CONCLUSION: Suspected hypertrophic change at the inferior aspect of the glenoid. Leon Hanks MD Objective Remarks GENERAL: Thin elderly male patient in NAD. SKIN: Warm and dry. No rash. HEAD: Normocephalic. Atraumatic. EYES: Pupils equal and round. No scleral icterus. No injection or drainage. ENT: No nasal bleeding or discharge. Mucous membranes pink and moist. NECK: Supple. Trachea midline. CARDIOVASCULAR: Regular rate and rhythm. S1, S2 noted. No murmur appreciated. RESPIRATORY: No accessory muscle use. Clear to auscultation. Breath sounds equal bilaterally. GASTROINTESTINAL: Abdomen soft, non-tender, nondistended. Normoactive bowel sounds x4. GENITOURINARY: adult brief with pink hematuria. Bilateral inguinal folds with diffuse erythema, worse on the left, with diffuse erythema/warmth/TTP throughout left upper thigh. MUSCULOSKELETAL: No obvious deformities. Extremities without clubbing, cyanosis , or edema. NEUROLOGICAL: Awake and alert. No obvious cranial nerve deficits. Motor grossly within normal limits. Normal speech. PSYCHIATRIC: Appropriate mood and affect; insight and judgment normal. Medications and IVs Current Medications Medications (Trade) Dose Ordered Sig/Aundrea Route Start Time Stop Time Status Last Admin (NS 1000 ml Inj) 1,000 ml @ 100 mls/hr Q10H IV 06/29/16 19:43 06/30/16 19:00 (NS Flush) 2 ml UNSCH PRN FLUSH 06/29/16 19:45 (NS Flush) 2 ml BID FLUSH 06/29/16 21:00 07/01/16 09:00 (Narcan Inj) 0.4 mg UNSCH PRN IV 06/29/16 19:45 (Fleet Mineral Oil Enema) 118 ml DAILY PRN RECTAL 06/29/16 20:30 06/30/16 11:05 Pantoprazole Sodium 40 mg 40 mg DAILY PO 06/30/16 12:30 07/01/16 15:41 Pharmacy Profile Note 0 ml @ 0 mls/hr UNSCH OTHER 07/01/16 12:15 Levofloxacin/ Dextrose 150 ml @ 100 mls/hr Q24H IV 07/01/16 13:00 07/01/16 15:46 (Vancomycin Inj/ NS 250 ml Inj) 262.5 ml @ 250 mls/hr Q12H IV 07/01/16 14:00 07/02/16 02:15 Miscellaneous Information SPECIFIC LAB TO BE DRAWN:VANCOMYCIN TROUGH DATE TO... ONCE ONCE XX 07/03/16 01:45 07/03/16 01:46 (Desitin 40% Oint) 1 applic BID PRN TOPICAL 07/02/16 12:30 A/P Problem List: (1) Constipation ICD Code: K59.00 Status: Acute (2) Quadriplegia, functional ICD Code: R53.2 Status: Chronic Assessment and Plan 76 y/o male with a history of partial quadriplegia presented with: Constipation for 15 days: not relieved with mag citrate. CT abd/pelvis images reviewed by me, unremarkable. S/p Mineral oil enema. Continue IVF. Consulted GI for recommendations- as pt is also reporting of cycles of constipation/ diarrhea (without use of laxatives) prior to this. Never had colonoscopy. EGD 07/01 showed gastritis and irregular Z line, poor prep for colonoscopy. Plan for repeat colonoscopy today however patient refuses. Will advance diet. Sepsis: Tmax 100.5, WBC 14.3K, hypotensive BP 90/63, source- UTI and cellulitis left upper thigh/groin. Blood cultures collected. Lactic acid 1.9. Started on IV Vanco and Levaquin. Monitor cultures. Left Inguinal/Upper Thigh Cellulitis: on IV Vanco/Levaquin as above. Monitor for fevers. Monitor CBC. UTI: repeat UA with large leuks/nitrites, occ bacteria. On Levaquin as above. Monitor urine culture. Quadriplegia, functional: PT eval and treat Macrocytosis: Checked B12 and folate, within normal limits. Chronic Deconditioning/Weakness: secondary to current infection in combination with chronic quadriplegia. Patient states he just wants to be comfortable at home. Consult palliative care. DVT prophylaxis: lovenox Written by Lidia Wilson, acting as scribe for Dr. Perkins on 07/02/16 at 12: 13. Attending Statement The documentation accurately reflects the work performed [id number] by me on at 12:13. Problem Qualifiers (1) Constipation: Qualified Code: K59.00 - Constipation, unspecified constipation type Lidia Wilson PA-C Jul 02, 2016 12:18 Bird Mckenzie MD Jul 03, 2016 19:23
[2016-07-02] MEDS ORDERED: ZINC OXIDE 40% OINT 60 GM TUBE TOPICAL PRN (12:30)
[2016-07-02 13:51] LABS: AUTOMATED NEUTROPHIL # 12.6 TH/MM3 (1.8-7.7); BASOPHIL # 0.1 TH/MM3 (0-0.2); BASOPHIL % 0.4 % (0.0-2.0); EOSINOPHIL % 0.1 % (0.0-4.0); HEMATOCRIT 39.4 % (39.0-51.0); HEMO FLAGS DIFF FINAL; LYMPH % 3.8 % (9.0-44.0); LYMPHOCYTE # 0.5 TH/MM3 (1.0-4.8); MEAN CELL VOLUME 105.1 FL (80.0-100.0); MEAN CORPUSCULAR HEMOGLOBIN 35.3 PG (27.0-34.0); MEAN CORPUSCULAR HGB CONC 33.6 % (32.0-36.0); MONO % 6.1 % (0.0-8.0); NEUT % 89.6 % (16.0-70.0); PLATELET COUNT 205 TH/MM3 (150-450); RED BLOOD COUNT 3.75 MIL/MM3 (4.50-5.90); RED CELL DISTRIBUTION WIDTH 12.9 % (11.6-17.2); WHITE BLOOD COUNT 14.1 TH/MM3 (4.0-11.0)
[2016-07-02 14:16] LABS: ALKALINE PHOSPHATASE 74 U/L (45-117); ALT (GPT) 13 U/L (12-78); ANION GAP 12 MEQ/L (5-15); AST (GOT) 18 U/L (15-37); BICARBONATE 26.6 MEQ/L (21.0-32.0); BLOOD UREA NITROGEN 14 MG/DL (7-18); CHLORIDE 102 MEQ/L (98-107); GLOMERULAR FILTRATION RATE 103 ML/MIN (>89); MAGNESIUM 1.8 MG/DL (1.5-2.5); POTASSIUM 3.4 MEQ/L (3.5-5.1); SODIUM (NA) 141 MEQ/L (136-145); TOTAL BILIRUBIN ADULT 0.6 MG/DL (0.2-1.0)
[2016-07-02] MEDS: LEVOFLOXACIN 750 MG PREMIX INJ 150 ML IV SCH (15:38)
[2016-07-02 15:39] VITALS: BP 117/73; PULSE 89; RESP 18; TEMP 98.6; O2SAT 89
[2016-07-02] MEDS ORDERED: POTASSIUM CHLORIDE 20 MEQ CONTROLLED RELEASE TAB PO ONE (16:00)
[2016-07-02 18:50] VITALS: BP 135/94; PULSE 86; RESP 20; TEMP 99.7; O2SAT 96
[2016-07-02 20:00] VITALS: BP 147/90; PULSE 80; RESP 17; TEMP 98.9; O2SAT 93
[2016-07-03] VITALS: BP 135/70; PULSE 87; RESP 17; TEMP 99.6; O2SAT 97
[2016-07-03] MEDS ORDERED: PHARMACY ORDERED LAB XX ONE (01:45)
[2016-07-03] MEDS: VANCOMYCIN INJ 1,250 MG in SODIUM CHLOR 0.9% 250 ML INJ 250 ML IV SCH ×2 (02:19→14:13)
[2016-07-03 04:00] VITALS: BP 163/95; PULSE 95; RESP 18; TEMP 98.5; O2SAT 96
[2016-07-03] MEDS: SODIUM CHLOR 0.9% 1000 ML INJ 1,000 ML IV SCH (05:21)
[2016-07-03] MEDS: SODIUM CHLORIDE 0.9% FLUSH 5 ML FLUSH FLUSH SCH ×2 (09:00→20:39)
[2016-07-03] MEDS: PANTOPRAZOLE SOD 40 MG DELAYED RELEASE TAB PO SCH (09:09)
[2016-07-03 09:44] VITALS: BP 136/94; PULSE 78; RESP 18; TEMP 97.6; O2SAT 94
[2016-07-03 12:30] VITALS: BP 147/97; PULSE 88; RESP 20; TEMP 97.1; O2SAT 95
[2016-07-03] MEDS: LEVOFLOXACIN 750 MG PREMIX INJ 150 ML IV SCH (13:06)
[2016-07-03 16:30] VITALS: BP 133/68; PULSE 78; RESP 20; TEMP 97.2; O2SAT 94
[2016-07-03] MEDS ORDERED: WHEEMIS3 (18:34)
--- NOTE | 2016-07-03 18:37 | HHI.PR ---
Subjective Remarks Follow-up sepsis, UTI and cellulitis of the anterior thigh. Patient denies chest pain or shots of breath. States that he feels better. Denies fevers or chills As per RN the patient complains of insomnia. Habits one reading of elevated blood pressure. Objective Vitals Vital Signs Date Time Temp Pulse Resp B/P Pulse Ox O2 Delivery O2 Flow Rate FiO2 07/03/16 16:30 97.2 78 20 133/68 94 07/03/16 12:30 97.1 88 20 147/97 95 07/03/16 09:44 97.6 78 18 136/94 94 07/03/16 04:00 98.5 95 18 163/95 96 07/03/16 00:00 99.6 87 17 135/70 97 07/02/16 20:00 98.9 80 17 147/90 93 07/02/16 18:50 99.7 86 20 135/94 96 I/O 07/02/16 07/02/16 07/02/16 07/03/16 07/03/16 07/03/16 07:00 15:00 23:00 07:00 15:00 23:00 Intake Total 740 ml 800 ml 2423 ml Output Total 250 ml Balance 490 ml 800 ml 2423 ml Intake Oral 240 ml 300 ml IV Total 500 ml 800 ml 2123 ml Output Urine Total 250 ml # Voids 2 3 Result Diagram: 07/02/16 1305 07/02/16 1305 Imaging Last Impressions Chest X-Ray 06/29/16 1508 Signed Impressions: Service Date/Time: Wednesday, June 29, 2016 15:19 - CONCLUSION: No acute pulmonary infiltrates. Enoc Tran MD Abdomen/Pelvis CT 06/29/16 1508 Signed Impressions: Service Date/Time: Wednesday, June 29, 2016 16:49 - CONCLUSION: Unremarkable CT scan of the abdomen and pelvis. Small hiatal hernia. No adenopathy, free fluid or mass. Fortino Grijalva MD Shoulder X-Ray 06/29/16 0000 Signed Impressions: Service Date/Time: Wednesday, June 29, 2016 17:47 - CONCLUSION: Suspected hypertrophic change at the inferior aspect of the glenoid. Leon Hanks MD Objective Remarks GENERAL: Thin elderly male patient in NAD. SKIN: Warm and dry. There is redness with slight warmth on the anterior thighs. HEAD: Normocephalic. Atraumatic. EYES: Pupils equal and round. No scleral icterus. No injection or drainage. ENT: No nasal bleeding or discharge. Mucous membranes pink and moist. NECK: Supple. Trachea midline. CARDIOVASCULAR: Regular rate and rhythm. S1, S2 noted. No murmur appreciated. RESPIRATORY: No accessory muscle use. Clear to auscultation. Breath sounds equal bilaterally. GASTROINTESTINAL: Abdomen soft, non-tender, nondistended. Normoactive bowel sounds x4. GENITOURINARY: adult brief with pink hematuria. Bilateral inguinal folds with diffuse erythema, worse on the left, with diffuse erythema/warmth/TTP throughout left upper thigh. MUSCULOSKELETAL: No obvious deformities. Extremities without clubbing, cyanosis , or edema. NEUROLOGICAL: Awake and alert. No obvious cranial nerve deficits. Motor grossly within normal limits. Normal speech. PSYCHIATRIC: Appropriate mood and affect; insight and judgment normal. Procedures Toes post EGD/incomplete colonoscopy with lavage on 07/01/16 ---> had a hernia and esophagitis Medications and IVs Current Medications Medications (Trade) Dose Ordered Sig/Aundrea Route Start Time Stop Time Status Last Admin (NS 1000 ml Inj) 1,000 ml @ 100 mls/hr Q10H IV 06/29/16 19:43 07/03/16 05:21 (NS Flush) 2 ml UNSCH PRN FLUSH 06/29/16 19:45 (NS Flush) 2 ml BID FLUSH 06/29/16 21:00 07/01/16 09:00 (Narcan Inj) 0.4 mg UNSCH PRN IV 06/29/16 19:45 (Fleet Mineral Oil Enema) 118 ml DAILY PRN RECTAL 06/29/16 20:30 06/30/16 11:05 Pantoprazole Sodium 40 mg 40 mg DAILY PO 06/30/16 12:30 07/03/16 09:09 Pharmacy Profile Note 0 ml @ 0 mls/hr UNSCH OTHER 07/01/16 12:15 Levofloxacin/ Dextrose 150 ml @ 100 mls/hr Q24H IV 07/01/16 13:00 07/03/16 13:06 (Vancomycin Inj/ NS 250 ml Inj) 262.5 ml @ 250 mls/hr Q12H IV 07/01/16 14:00 07/03/16 14:13 (Desitin 40% Oint) 1 applic BID PRN TOPICAL 07/02/16 12:30 Urinary Catheter: No Vascular Central Line Catheter: No A/P Problem List: (1) Constipation ICD Code: K59.00 Status: Resolved Plan: Patient presented with constipation for 15 days not relieved with magnesium citrate. The abdomen and pelvis was unremarkable. Patient status post minimal oral enema. GI consulted. The patient admitted to GI episodes of constipation/diarrhea. To this. Patient never had colonoscopy. Patient underwent EGD and to follow cyst which showed gastritis and irregular Z line, poor prep for colonoscopy. The plan was to repeat colonoscopy were patient refused. Diet was resumed. Constipation has resolved. (2) Sepsis ICD Code: A41.9 Status: Acute Plan: Sepsislikely secondary to UTI and cellulitis of the upper thigh. Patient on IV vancomycin and Levaquin. I will start the patient on IV fluconazole for upper cellulitis which could be secondary to fungal infection. Blood cultures negative 2, continue to follow. Urine culture is growing gram-negative rods. ID and sensitivities follow. (3) Quadriplegia, functional ICD Code: R53.2 Status: Chronic Plan: Appreciate PT efforts. PT recommended discharge to rehabilitation, however patient once home and is going to live on Tuesday. (4) Macrocytosis without anemia ICD Code: D75.89 Status: Acute Plan: B 12 and folate checked. Within normal limits. Continue to monitor. (5) Generalized weakness ICD Code: R53.1 Status: Acute Plan: Secondary to current infection in combination with chronic quadriplegia. Patient states he just wants to be comfortable at home. Consult palliative care. Problem Qualifiers (1) Constipation: Qualified Code: K59.00 - Constipation, unspecified constipation type (2) Sepsis: Qualified Code: A41.9 - Sepsis, due to unspecified organism Bird Mckenzie MD Jul 03, 2016 18:37
[2016-07-03 20:00] VITALS: BP 143/90; PULSE 85; RESP 17; TEMP 96.6; O2SAT 95
[2016-07-03] MEDS: FLUCONAZOLE 400 MG PREMIX BAG 200 ML IV SCH (20:00)
--- NOTE | 2016-07-03 20:40 | HHI.GIFU ---
Subjective Remarks Patient comfortable in bed he states he had a bowel movement he also tells me he wants to go to the [place] and is not interested in pursuing a colonoscopy at this point Objective Vitals I&O Vital Signs Date Time Temp Pulse Resp B/P Pulse Ox O2 Delivery O2 Flow Rate FiO2 07/03/16 16:30 97.2 78 20 133/68 94 07/03/16 12:30 97.1 88 20 147/97 95 07/03/16 09:44 97.6 78 18 136/94 94 07/03/16 04:00 98.5 95 18 163/95 96 07/03/16 00:00 99.6 87 17 135/70 97 I/O 07/02/16 07/02/16 07/02/16 07/03/16 07/03/16 07/03/16 07:00 15:00 23:00 07:00 15:00 23:00 Intake Total 740 ml 800 ml 2423 ml 60 ml Output Total 250 ml Balance 490 ml 800 ml 2423 ml 60 ml Intake Oral 240 ml 300 ml 60 ml IV Total 500 ml 800 ml 2123 ml Output Urine Total 250 ml # Voids 2 3 1 # Bowel Movements 1 Laboratory Laboratory Tests Test 07/03/16 02:07 Vancomycin Level Trough 14.7 Date/Time Procedure Status Source Growth 07/01/16 20:50 Urine Culture - Preliminary Resulted Urine Clean Catch Gram Negative Timmy 07/01/16 15:20 Aerobic Blood Culture - Preliminary Resulted Blood Peripheral NO GROWTH IN 2 DAYS 07/01/16 15:20 Anaerobic Blood Culture - Preliminary Resulted Blood Peripheral NO GROWTH IN 2 DAYS Physical Exam CHEST: Chest is clear to auscultation and percussion. CARDIAC: Regular rate and rhythm with no murmur gallop or rubs. ABDOMEN: Soft, nondistended, nontender; no hepatosplenomegaly; bowel sounds are present in all four quadrants. EXTREMITIES: No clubbing, cyanosis, or edema. SKIN: Normal; no rash; no jaundice. Assessment and Plan Plan ASSESSMENT: - Change in bowels, alternating constipation/diarrhea with reportedly no BM x 15 days. Started 6 months ago, going 3-5 days without a bowel movement, having a large hard bowel movement followed by diarrhea with incontinence and urgency, wakes up soiled. States his was getting "fed up" and therefore he started taking Kaopectate and "took an extra swig" of this 15 days ago. He reports that he has not had a bowel movement since that time. He is a poor historian. He was seen at [facility] and told to take Magnesium Citrate, which he said he did but he did not have any results. He cannot tell me if he has lost any weight, although he appears dishevled and malnourished He has never had an EGD/Colonoscopy. Abdomen/Pelvis CT (06/29/16)----> Unremarkable CT scan of the abdomen and pelvis. Small hiatal hernia. No adenopathy, free fluid or mass. He was given MOM and mineral oil without results. - Epigastric pain/pressure. PPI - Hematuria. Pt was incontinent and his urine on the bath blanket has a pinkish color to it. U/A with trace ketones, large occult blood. Per primary - Macrocytosis. Vitamin B12 276, Folate >20.0. 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
[2016-07-04] VITALS: BP 142/91; PULSE 87; RESP 17; TEMP 97.3; O2SAT 94
[2016-07-04] MEDS: VANCOMYCIN INJ 1,250 MG in SODIUM CHLOR 0.9% 250 ML INJ 250 ML IV SCH ×2 (02:38→14:48)
[2016-07-04 04:00] VITALS: BP 142/95; PULSE 79; RESP 16; TEMP 96.1; O2SAT 96
[2016-07-04 08:18] LABS: AUTOMATED NEUTROPHIL # 6.5 TH/MM3 (1.8-7.7); BASOPHIL % 0.5 % (0.0-2.0); EOSINOPHIL # 0.1 TH/MM3 (0-0.4); EOSINOPHIL % 1.9 % (0.0-4.0); HEMATOCRIT 39.9 % (39.0-51.0); HEMO FLAGS DIFF FINAL; LYMPH % 6.8 % (9.0-44.0); LYMPHOCYTE # 0.5 TH/MM3 (1.0-4.8); MEAN CELL VOLUME 104.7 FL (80.0-100.0); MEAN CORPUSCULAR HEMOGLOBIN 35.5 PG (27.0-34.0); MEAN CORPUSCULAR HGB CONC 33.9 % (32.0-36.0); MONO % 7.7 % (0.0-8.0); NEUT % 83.1 % (16.0-70.0); PLATELET COUNT 224 TH/MM3 (150-450); RED BLOOD COUNT 3.81 MIL/MM3 (4.50-5.90); WHITE BLOOD COUNT 7.8 TH/MM3 (4.0-11.0)
[2016-07-04] MEDS: SODIUM CHLOR 0.9% 1000 ML INJ 1,000 ML IV SCH ×2 (08:25→20:19)
[2016-07-04] MEDS: SODIUM CHLORIDE 0.9% FLUSH 5 ML FLUSH FLUSH SCH ×2 (08:25→20:24)
[2016-07-04] MEDS: PANTOPRAZOLE SOD 40 MG DELAYED RELEASE TAB PO SCH (08:25)
[2016-07-04 08:36] LABS: ALKALINE PHOSPHATASE 75 U/L (45-117); ALT (GPT) 16 U/L (12-78); ANION GAP 7 MEQ/L (5-15); AST (GOT) 24 U/L (15-37); BICARBONATE 28.7 MEQ/L (21.0-32.0); BLOOD UREA NITROGEN 12 MG/DL (7-18); CHLORIDE 105 MEQ/L (98-107); GLOMERULAR FILTRATION RATE 113 ML/MIN (>89); POTASSIUM 3.7 MEQ/L (3.5-5.1); SODIUM (NA) 141 MEQ/L (136-145); TOTAL BILIRUBIN ADULT 0.5 MG/DL (0.2-1.0)
[2016-07-04 08:50] VITALS: BP 142/83; PULSE 78; RESP 22; TEMP 97.6; O2SAT 97
[2016-07-04 11:50] VITALS: BP 148/72; PULSE 88; RESP 18; TEMP 96.9; O2SAT 96
[2016-07-04] MEDS: LEVOFLOXACIN 750 MG PREMIX INJ 150 ML IV SCH (12:34)
[2016-07-04 16:50] VITALS: BP 135/82; PULSE 78; RESP 18; TEMP 96.9; O2SAT 97
--- NOTE | 2016-07-04 18:14 | HHI.PR ---
Subjective Remarks Patient states he feels better but is tired because did not sleep well denies cp/sob denies fevers/chills stable vital signs wbc down to 7 Objective Vitals Vital Signs Date Time Temp Pulse Resp B/P Pulse Ox O2 Delivery O2 Flow Rate FiO2 07/04/16 16:50 96.9 78 18 135/82 97 07/04/16 11:50 96.9 88 18 148/72 96 07/04/16 08:50 97.6 78 22 142/83 97 07/04/16 04:00 96.1 79 16 142/95 96 07/04/16 00:00 97.3 87 17 142/91 94 07/03/16 20:00 96.6 85 17 143/90 95 I/O 07/03/16 07/03/16 07/03/16 07/04/16 07/04/16 07/04/16 07:00 15:00 23:00 07:00 15:00 23:00 Intake Total 800 ml 2423 ml 60 ml 120 ml 3006 ml Output Total 100 ml Balance 800 ml 2423 ml 60 ml 120 ml 3006 ml -100 ml Intake Oral 300 ml 60 ml 120 ml 380 ml IV Total 800 ml 2123 ml 2626 ml Output Urine Total 100 ml # Voids 2 3 2 2 3 1 # Bowel Movements 1 0 1 Result Diagram: 07/04/16 0705 07/04/16 0705 Imaging Last Impressions Chest X-Ray 06/29/16 1508 Signed Impressions: Service Date/Time: Wednesday, June 29, 2016 15:19 - CONCLUSION: No acute pulmonary infiltrates. Enoc Tran MD Abdomen/Pelvis CT 06/29/16 1508 Signed Impressions: Service Date/Time: Wednesday, June 29, 2016 16:49 - CONCLUSION: Unremarkable CT scan of the abdomen and pelvis. Small hiatal hernia. No adenopathy, free fluid or mass. Fortino Grijalva MD Shoulder X-Ray 06/29/16 0000 Signed Impressions: Service Date/Time: Wednesday, June 29, 2016 17:47 - CONCLUSION: Suspected hypertrophic change at the inferior aspect of the glenoid. Leon Hanks MD Objective Remarks GENERAL: Thin elderly male patient in NAD. SKIN: Warm and dry. There is redness with slight warmth on the anterior thighs. HEAD: Normocephalic. Atraumatic. EYES: Pupils equal and round. No scleral icterus. No injection or drainage. ENT: No nasal bleeding or discharge. Mucous membranes pink and moist. NECK: Supple. Trachea midline. CARDIOVASCULAR: Regular rate and rhythm. S1, S2 noted. No murmur appreciated. RESPIRATORY: No accessory muscle use. Clear to auscultation. Breath sounds equal bilaterally. GASTROINTESTINAL: Abdomen soft, non-tender, nondistended. Normoactive bowel sounds x4. GENITOURINARY:. Bilateral inguinal folds with diffuse erythema which is blanching, worse on the left, with diffuse erythema/warmth/TTP throughout left upper thigh. MUSCULOSKELETAL: No obvious deformities. Extremities without clubbing, cyanosis , or edema. NEUROLOGICAL: Awake and alert. No obvious cranial nerve deficits. Motor grossly within normal limits. Normal speech. PSYCHIATRIC: Appropriate mood and affect; insight and judgment normal. Procedures Toes post EGD/incomplete colonoscopy with lavage on 07/01/16 ---> had a hernia and esophagitis Medications and IVs Current Medications Medications (Trade) Dose Ordered Sig/Aundrea Route Start Time Stop Time Status Last Admin (NS 1000 ml Inj) 1,000 ml @ 100 mls/hr Q10H IV 06/29/16 19:43 07/04/16 08:25 (NS Flush) 2 ml UNSCH PRN FLUSH 06/29/16 19:45 (NS Flush) 2 ml BID FLUSH 06/29/16 21:00 07/01/16 09:00 (Narcan Inj) 0.4 mg UNSCH PRN IV 06/29/16 19:45 (Fleet Mineral Oil Enema) 118 ml DAILY PRN RECTAL 06/29/16 20:30 06/30/16 11:05 Pantoprazole Sodium 40 mg 40 mg DAILY PO 06/30/16 12:30 07/04/16 08:25 Pharmacy Profile Note 0 ml @ 0 mls/hr UNSCH OTHER 07/01/16 12:15 Levofloxacin/ Dextrose 150 ml @ 100 mls/hr Q24H IV 07/01/16 13:00 07/04/16 12:34 (Vancomycin Inj/ NS 250 ml Inj) 262.5 ml @ 250 mls/hr Q12H IV 07/01/16 14:00 07/04/16 14:48 Zinc Oxide 1 applic 1 applic BID PRN TOPICAL 07/02/16 12:30 (Diflucan 400 Mg Premix Bag) 200 ml @ 100 mls/hr Q24H IV 07/03/16 20:00 07/03/16 20:00 Urinary Catheter: No Vascular Central Line Catheter: No A/P Problem List: (1) Constipation ICD Code: K59.00 Status: Resolved (2) Sepsis ICD Code: A41.9 Status: Acute (3) Quadriplegia, functional ICD Code: R53.2 Status: Chronic (4) Macrocytosis without anemia ICD Code: D75.89 Status: Acute (5) Generalized weakness ICD Code: R53.1 Status: Acute (6) Insomnia ICD Code: G47.00 Status: Acute Plan: Will Rx ambien at bedtime. Assessment and Plan (1) Constipation Plan: Patient presented with constipation for 15 days not relieved with magnesium citrate. The abdomen and pelvis was unremarkable. Patient status post minimal oral enema. GI consulted. The patient admitted to GI episodes of constipation/diarrhea. To this. Patient never had colonoscopy. Patient underwent EGD and to follow cyst which showed gastritis and irregular Z line, poor prep for colonoscopy. The plan was to repeat colonoscopy were patient refused. Diet was resumed. Constipation has resolved. GI recommends daily Miralax upon discharge. (2) Sepsis Plan: Sepsis likely secondary to UTI and cellulitis of the upper thigh. Patient on IV vancomycin and Levaquin. I will start the patient on IV fluconazole for upper cellulitis which could be secondary to fungal infection. Blood cultures negative 2, continue to follow. Urine culture is growing gram-negative rods. 2/5 Urine culture is growing Proteus Mirabilis - sensitive to quinolones. Sepsis resolved with stable vital signs and leukocytosis resolved. (3) Quadriplegia, functional Plan: Appreciate PT efforts. PT recommended discharge to rehabilitation, however patient once home and is going to leave on tuesday. Will DC patient with home health PT. (4) Macrocytosis without anemia Plan: B 12 and folate checked. Within normal limits. Continue to monitor. (5) Generalized weakness Plan: Secondary to current infection in combination with chronic quadriplegia. Patient states he just wants to be comfortable at home. Dc home with home health PT. Discharge Planning Dc home with home helath PT - CM to assist Problem Qualifiers (1) Constipation: Qualified Code: K59.00 - Constipation, unspecified constipation type (2) Sepsis: Qualified Code: A41.9 - Sepsis, due to unspecified organism Bird Mckenzie MD Jul 04, 2016 18:14
[2016-07-04] MEDS ORDERED: FLUC100T2 PO (18:56)
[2016-07-04] MEDS ORDERED: AMBI5TAB PO ×2 (18:56→20:20)
[2016-07-04] MEDS ORDERED: MIRA33504 PO (18:56)
[2016-07-04] MEDS ORDERED: LEVA750T PO (18:56)
--- NOTE | 2016-07-04 18:57 | HHI.DCPOC ---
Discharge Care Plan Diagnosis: (1) Abdominal pain (2) Quadriplegia, functional (3) Sepsis (4) Generalized weakness (5) Macrocytosis without anemia (6) Insomnia (7) Constipation Goals to Promote Your Health * To prevent worsening of your condition and complications * To maintain your health at the optimal level Directions to Meet Your Goals Take your medications as prescribed Follow your dietary instruction Follow activity as directed Keep your appointments as scheduled Take your immunizations and boosters as scheduled If your symptoms worsen call your PCP, if no PCP go to Urgent Care Center or Emergency Room Smoking is Dangerous to Your Health. Avoid second hand smoke Call the 24-hour hour crisis hotline for domestic abuse at Bird Mckenzie MD Jul 04, 2016 18:57
--- NOTE | 2016-07-04 18:58 | HHI.FF ---
Face to Face Verification Diagnosis: (1) Quadriplegia, functional (2) Orthostatic hypotension (3) Constipation (4) Sepsis (5) Generalized weakness (6) Macrocytosis without anemia (7) Insomnia (8) Abdominal pain Physical Therapy Order: Improve ambulation, Strength and gait training Home Health Nursing Order: Medical education Signs/symptoms of disease process Nursing assessment with vital signs I have seen patient Gianfranco Wiggins on 07/04/16. My clinical findings support the need for the requested home health care services because: Deconditioned w/ increased weakness Limited ability to care for self Need for psychosocial assistance Infection w/ risk of complications I certify that my clinical findings support that this patient is homebound because: Unsteady gait/balance Unsafe to leave home unassisted Fmg-elbmetwwvb-skaxcecm bed/chair Unable to use public transportation Bird Mckenzie MD Jul 04, 2016 18:58
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
[2016-07-04] MEDS ORDERED: ZOLPIDEM TARTRATE 5 MG TAB PO PRN (19:15)
[2016-07-04] MEDS ORDERED: MINER RECTAL (19:19)
[2016-07-04 20:00] VITALS: BP 134/93; PULSE 82; RESP 18; TEMP 98; O2SAT 94
[2016-07-04] MEDS ORDERED: ZALE5CAP PO (20:18)
[2016-07-04] MEDS: FLUCONAZOLE 400 MG PREMIX BAG 200 ML IV SCH (20:22)
[2016-07-05] VITALS: BP 140/90; PULSE 83; RESP 18; TEMP 98.1; O2SAT 94
[2016-07-05] MEDS: SODIUM CHLOR 0.9% 1000 ML INJ 1,000 ML IV SCH (01:23)
[2016-07-05] MEDS: VANCOMYCIN INJ 1,250 MG in SODIUM CHLOR 0.9% 250 ML INJ 250 ML IV SCH (02:24)
[2016-07-05 04:00] VITALS: BP 145/91; PULSE 80; RESP 18; TEMP 97; O2SAT 98
[2016-07-05 07:50] VITALS: BP 148/91; PULSE 82; RESP 20; TEMP 96.1; O2SAT 94
--- NOTE | 2016-07-05 07:58 | HHI.PR ---
Subjective Remarks resting comfortably with no distress. no new complaints. wants to go home today. d/w the RN and no acute issues over night. Objective Vitals Vital Signs Date Time Temp Pulse Resp B/P Pulse Ox O2 Delivery O2 Flow Rate FiO2 07/05/16 04:00 97.0 80 18 145/91 98 07/05/16 00:00 98.1 83 18 140/90 94 07/04/16 20:00 98.0 82 18 134/93 94 07/04/16 16:50 96.9 78 18 135/82 97 07/04/16 11:50 96.9 88 18 148/72 96 07/04/16 08:50 97.6 78 22 142/83 97 I/O 07/04/16 07/04/16 07/04/16 07/05/16 07/05/16 07/05/16 07:00 15:00 23:00 07:00 15:00 23:00 Intake Total 120 ml 3006 ml 965 ml 915 ml Output Total 100 ml Balance 120 ml 3006 ml 865 ml 915 ml Intake Oral 120 ml 380 ml 240 ml IV Total 2626 ml 725 ml 915 ml Output Urine Total 100 ml # Voids 2 3 3 1 # Bowel Movements 0 1 Result Diagram: 07/04/16 0705 07/04/16 0705 Imaging Last Impressions Chest X-Ray 06/29/16 1508 Signed Impressions: Service Date/Time: Wednesday, June 29, 2016 15:19 - CONCLUSION: No acute pulmonary infiltrates. Enoc Tran MD Abdomen/Pelvis CT 06/29/16 1508 Signed Impressions: Service Date/Time: Wednesday, June 29, 2016 16:49 - CONCLUSION: Unremarkable CT scan of the abdomen and pelvis. Small hiatal hernia. No adenopathy, free fluid or mass. Fortino Grijalva MD Shoulder X-Ray 06/29/16 0000 Signed Impressions: Service Date/Time: Wednesday, June 29, 2016 17:47 - CONCLUSION: Suspected hypertrophic change at the inferior aspect of the glenoid. Leon Hanks MD Objective Remarks GENERAL: This is a well-nourished, well-developed patient, in no apparent distress. CARDIOVASCULAR: Regular rate and regular rhythm without murmurs, gallops, or rubs. RESPIRATORY: Clear to auscultation. Breath sounds equal bilaterally. No wheezes , rales, or rhonchi. GASTROINTESTINAL: Abdomen soft, non-tender, nondistended. Normal, active bowel sounds MUSCULOSKELETAL: Extremities without clubbing, cyanosis, or edema. NEURO: Alert & Oriented x4 to person, place, time, situation. Moves all ext x4 Procedures Toes post EGD/incomplete colonoscopy with lavage on 07/01/16 ---> had a hernia and esophagitis Medications and IVs Current Medications IV Flush (NS Flush) 2 ml UNSCH PRN IVF FLUSH AFTER USING IV ACCESS; Start 06/29 at 15:15; Stop 06/29/16 at 19:56; Status DC Iohexol 90 ml 90 ml STK-MED ONCE IV Last administered on 06/29/16 16:48; Start 06/29/16 at 16:48; Stop 06/29/16 at 16:53; Status DC Sodium Chloride (NS 1000 ml Inj) 1,000 ml @ 100 mls/hr Q10H IV Last administered on 07/04/16 20:19; Start 06/29/16 at 19:43 IV Flush (NS Flush) 2 ml UNSCH PRN FLUSH FLUSH AFTER USING IV ACCESS; Start at 19:45 IV Flush (NS Flush) 2 ml BID FLUSH Last administered on 07/04/16 20:24; Start 06/29/16 at 21:00 Enoxaparin Sodium (Lovenox Inj) 40 mg Q24H SQ Last administered on 06/30/16 11: 05; Start 06/30/16 at 09:00; Stop 06/30/16 at 19:41; Status DC Naloxone HCl (Narcan Inj) 0.4 mg UNSCH PRN IV SEE LABEL COMMENTS; Start at 19:45 Magnesium Hydroxide (Milk Of Magnesia Liq) 30 ml ONCE ONCE PO Last administered on 06/29/16 22:20; Start 06/29/16 at 20:30; Stop 06/29/16 at 20:31 ; Status DC Mineral Oil (Fleet Mineral Oil Enema) 118 ml DAILY PRN RECTAL constipation Last administered on 06/30/16 11:05; Start 06/29/16 at 20:30 Influenza Virus Vaccine (Flu (Quadrivalent) Vaccine Inj) 0.5 ml ONCE ONCE IM ; Start 07/01/16 at 09:00; Stop 07/01/16 at 09:01; Status DC Pantoprazole Sodium (Protonix) 40 mg DAILY PO Last administered on 07/04/16 08: 25; Start 06/30/16 at 12:30 Polyethylene Glycol/ Electrolytes 4000 ml 4,000 ml ONCE ONCE PO Last administered on 06/30/16 16:57; Start 06/30/16 at 16:00; Stop 06/30/16 at 16:01; Status DC Pharmacy Profile Note 0 ml @ 0 mls/hr UNSCH OTHER ; Start 07/01/16 at 12:15 Levofloxacin/ Dextrose 150 ml @ 100 mls/hr Q24H IV Last administered on 12:34; Start 07/01/16 at 13:00 Vancomycin HCl/ Sodium Chloride (Vancomycin Inj/ NS 250 ml Inj) 262.5 ml @ 250 mls/hr Q12H IV Last administered on 07/05/16 02:24; Start 07/01/16 at 14:00 Miscellaneous Information SPECIFIC LAB TO BE DRAWN:VANCOMYCIN TROUGH DATE TO... ONCE ONCE XX Last administered on 07/03/16 01:45; Start 07/03/16 at 01:45; Stop 07/03/16 at 01:46; Status DC Polyethylene Glycol/ Electrolytes (Colyte Liq) 4,000 ml ONCE ONCE PO Last administered on 07/01/16 17:27; Start 07/01/16 at 16:00; Stop 07/01/16 at 16:01; Status DC Propofol (Diprivan 200 Mg/20 ml Inj) 170 mg STK-MED ONCE IV ; Start 07/01/16 at 14:45; Stop 07/01/16 at 14:46; Status DC Zinc Oxide (Desitin 40% Oint) 1 applic BID PRN TOPICAL DIAPER RASH; Start at 12:30 Potassium Chloride 20 meq 20 meq ONCE ONCE PO Last administered on 07/02/16 17 :05; Start 07/02/16 at 16:00; Stop 07/02/16 at 16:01; Status DC Fluconazole/ Sodium Chloride (Diflucan 400 Mg Premix Bag) 200 ml @ 100 mls/hr Q24H IV Last administered on 07/04/16 20:22; Start 07/03/16 at 20:00 Zolpidem Tartrate (Ambien) 5 mg HS PRN PO INSOMNIA Last administered on 21:14; Start 07/04/16 at 19:15 A/P Assessment and Plan (1) Constipation Plan: Patient presented with constipation for 15 days not relieved with magnesium citrate. The abdomen and pelvis was unremarkable. Patient status post minimal oral enema. GI consulted. The patient admitted to GI episodes of constipation/diarrhea. To this. Patient never had colonoscopy. Patient underwent EGD which showed gastritis and irregular Z line, poor prep for colonoscopy. The plan was to repeat colonoscopy were patient refused. Diet was resumed. Constipation has resolved. GI recommends daily Miralax upon discharge. GI has signed off. (2) Sepsis Plan: Sepsis likely secondary to UTI and cellulitis of the upper thigh. treated with IV antibiotics. Blood cultures negative 2, continue to follow. Urine culture is growing gram-negative rods. 07/04 Urine culture is growing Proteus Mirabilis - sensitive to quinolones. Sepsis resolved with stable vital signs and leukocytosis resolved. (3) Quadriplegia, functional Plan: Appreciate PT efforts. PT recommended discharge to rehabilitation, however patient once home and is going to leave on tuesday. Will DC patient with home health PT. (4) Macrocytosis without anemia Plan: B 12 and folate checked. Within normal limits. Continue to monitor. (5) Generalized weakness Plan: Secondary to current infection in combination with chronic quadriplegia. Patient states he just wants to be comfortable at home. Dc home with home health PT. Discharge Planning dc home with [facility]. f/u with pcp and GI. see med list. d/w the patient, family and RN. Kirsten Gomez MD Jul 05, 2016 07:58
[2016-07-05] MEDS ORDERED: PANT40TA3 PO (08:06)
== END 2016-07-05 08:17 | disposition home or self-care (01) | DRG 871 ==
LOC: NEPA 14:37 → NEDA 17:50 → NEPGCP 06-30 00:03 → OBSVTOIN 07-01 18:39 → HOCA 07-02 18:33
PROVIDERS: ADMIT Internal Medicine; ATTEND Internal Medicine
PROC: 0DJD8ZZ Inspection of Lower Intestinal Tract, Via Natural or Artificial Opening Endoscopic (ICD-10-PCS; 2016-07-01)
PROC: 0DB58ZX Excision of Esophagus, Via Natural or Artificial Opening Endoscopic, Diagnostic (ICD-10-PCS; principal; 2016-07-01 13:20)
PROC: 0DB68ZX Excision of Stomach, Via Natural or Artificial Opening Endoscopic, Diagnostic (ICD-10-PCS; 2016-07-01 13:20)
DX: A41.9 Sepsis, unspecified organism (principal); R53.2 Functional quadriplegia; N39.0 Urinary tract infection, site not specified; B48.8 Other specified mycoses; L03.116 Cellulitis of left lower limb; D75.89 Other specified diseases of blood and blood-forming organs; R31.9 Hematuria, unspecified; K59.09 Other constipation; Z91.040 Latex allergy status; Z99.3 Dependence on wheelchair; L30.9 Dermatitis, unspecified; Z87.891 Personal history of nicotine dependence; F12.90 Cannabis use, unspecified, uncomplicated; K44.9 Diaphragmatic hernia without obstruction or gangrene; K29.70 Gastritis, unspecified, without bleeding; G47.00 Insomnia, unspecified; B96.4 Proteus (mirabilis) (morganii) as the cause of diseases classified elsewhere; R53.1 Weakness
CPT/HCPCS: 71010; 73030; 74177; 80048; 80053; 80202; 81001; 82607; 82746; 83605; 83690; 83735; 84100; 84443; 85025; 85610; 85730; 87040; 87077; 87086; 87186; 88305; 88312; 93005; G0378; G8987-GP; G8988-GP; J1450; J1650; J1956; J3370; J7030; J7050; P9612; Q9967